=== PATIENT | male | born 1975 | race Hispanic/Latino ===

== ENCOUNTER 2019-02-10 09:48 | Outpatient (CLI) | payer MEDICARE ==
--- NOTE | 2019-02-10 12:07 | Magnetic Resonance Report ---
MRI BRAIN WITHOUT CONTRAST INDICATION / CLINICAL INFORMATION: G31.09)G31.09: Other frontotemporal dementia.. TECHNIQUE: Multiplanar, multisequence MR images of the brain were obtained. COMPARISON: None available. FINDINGS: BRAIN / INTRACRANIAL CONTENTS: Ventricles and cortical sulci are normal in size and configuration. Th ere is no mass effect. No evidence of intracranial hemorrhage or extra-axial fluid collection is seen . No areas of abnormal brain parenchymal signal intensity are identified. There is no indication of r emote cortical infarction. Diffusion weighted scans are negative. There is no indication of acute isc hemic injury. The brainstem and cerebellum have an unremarkable appearance. Incidental note is made of a negative c isterna magna versus arachnoid cyst dorsal to the vermis.. CRANIOCERVICAL JUNCTION: No abnormalities are identified at the craniocervical junction. VASCULAR FLOW-VOIDS: Normal flow-voids are present within the major intracranial vessels. ORBITS: The orbits have an unremarkable appearance. SINUSES / MASTOIDS: There is no indication of inflammatory disease in the paranasal sinuses or mastoi d air cells. ADDITIONAL FINDINGS: None. IMPRESSION: 1. 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 2. Otherwise normal MRI brain without contrast. Signer Name: Nain Glass MD Signed: 02/10/2019 12:03 PM Workstation Name: [id number]
== END 2019-02-10 09:49 | disposition home or self-care (01) ==
LOC: MRI 09:48
PROVIDERS: ATTEND Student in an Organized Health Care Education/Training Program
DX: G31.09 Other frontotemporal neurocognitive disorder (principal)
CPT/HCPCS: 70551